=== PATIENT | female | born 1960 | race African-American/Black ===

== ENCOUNTER 2017-04-19 05:56 | Emergency (ER) | payer OTHER ==
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
[2017-04-19] MEDS ORDERED: TORADOL IM ONE (08:30)
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
[2017-04-19 08:57] LABS: Bacteria,Urine 1+ /HPF (Negative)
[2017-04-19 09:00] LABS: Bilirubin,Urine Negative (Negative); Blood,Urine Negative (Negative); Ketones,Urine Negative (Negative)
[2017-04-19 09:01] LABS: Leukocyte Esterase,Urine Small (Negative); Nitrite,Urine Negative (Negative); Urobilinogen,Urine < 2.0 mg/dL (<2.0)
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
[2017-04-19 09:39] VITALS: BP 155/90
== END 2017-04-19 09:48 | disposition home or self-care (01) ==
LOC: ED 05:56
DX: M79.661 Pain in right lower leg (principal); M79.662 Pain in left lower leg; M25.511 Pain in right shoulder; I10 Essential (primary) hypertension; E11.9 Type 2 diabetes mellitus without complications; M54.2 Cervicalgia; V49.49XA Driver injured in collision with other motor vehicles in traffic accident, initial encounter; Y93.89 Activity, other specified; Y92.89 Other specified places as the place of occurrence of the external cause; Y99.8 Other external cause status
CPT/HCPCS: 71020; 72125; 73030; 73590; 81001; 93005; 93010; 96372; 99285; J1885